=== PATIENT | male | born 1945 | race Two or more races ===

== ENCOUNTER 2021-10-05 05:48 | Day surgery (SDC) | payer OTHER ==
[~2021-10-05 05:48] MED LIST: ADULT LOW DOSE81 M1 PO; ATORVASTATIN CA20 MG PO; LEVOTHYROXINE25 MCG PO
== END 2021-10-05 11:15 | disposition home or self-care (01) ==
LOC: CIR.AMB 05:48
PROVIDERS: ATTEND Orthopaedic Surgery Hand Surgery
DX: G56.01 Carpal tunnel syndrome, right upper limb (principal); Z88.0 Allergy status to penicillin; I25.10 Atherosclerotic heart disease of native coronary artery without angina pectoris; I10 Essential (primary) hypertension; Z99.89 Dependence on other enabling machines and devices; G47.33 Obstructive sleep apnea (adult) (pediatric); E78.00 Pure hypercholesterolemia, unspecified; Z95.5 Presence of coronary angioplasty implant and graft; Z79.82 Long term (current) use of aspirin; E03.9 Hypothyroidism, unspecified